=== PATIENT | female | born 1950 | race American Indian/Alaskan Native ===

== ENCOUNTER 2019-08-01 06:00 | Observation (INO) | payer MEDICARE, OTHER ==
--- NOTE | 2019-07-27 10:30 | Anesthesia Consultation ---
Anesthesia Consult and Med Hx Date of service: 07/27/19 - Airway Anesthetic Teeth Evaluation: Caps, Bridges ROM Head & Neck: Adequate Mental/Hyoid Distance: Adequate Mallampati Class: Class II Intubation Access Assessment: Probably Good - Pre-Operative Health Status ASA Pre-Surgery Classification: ASA3 Proposed Anesthetic Plan: General Nerve Block: AC - Pulmonary Hx Pneumonia: Yes (AGE 4 YRS) - Cardiovascular System Hx Hypertension: Yes Hx Coronary Artery Disease: Yes (+Cardiac clearance, ECHO, Stress test) Hx Heart Attack/AMI: Yes (Stents X 3 2018) - Central Nervous System Hx Back Pain: Yes Hx Psychiatric Problems: No - Endocrine Hx Renal Disease: Yes (Creatinine 1.11) Hx Non-Insulin Dependent Diabetes: Yes - Hematic Hx Anemia: No - Other Systems Hx Alcohol Use: No Hx Substance Use: No Hx Cancer: Yes
[~2019-08-01 06:00] MED LIST: BUPIVACAINE/PF (0.25%) 2.5 MG/ML 30 ML VIAL INFILTRATI ONE; CELECOXIB 200 MG CAP PO NR; GABAPENTIN 300 MG CAP PO NR; KETOROLAC 10 MG TAB PO ONE; MIDAZOLAM 2 MG/2 ML INJ IV NR; MORPHINE 10 MG/1 ML INJ IM ONE; SODIUM CHLORIDE 0.9% 50 ML VIAL INFILTRATI ONE; VANCOMYCIN/NS 1 GM/250 ML 1 GM/250 ML BAG IV SCH; fentaNYL 100 MCG/2 ML INJ IV PRN
[2019-08-01] MEDS: LACTATED RINGERS 1,000 ML IV SCH ×2 (07:05→22:47)
[2019-08-01] MEDS ORDERED: HYDROmorphone 1 MG/1 ML INJ IV PRN (07:15)
[2019-08-01] MEDS ORDERED: ONDANSETRON 4 MG/2 ML INJ IV PRN (07:15)
--- NOTE | 2019-08-01 07:18 | Anesthesia Day of Surgery ---
Anesthesia Day of Surgery - Day of Surgery Patient Examined: Yes Patient H&P Reviewed: Yes Patient is NPO: Yes Beta Blockers: Yes Cardiac Clearance: Yes
[2019-08-01] MEDS ORDERED: BUPIVACAINE/PF (0.25%) 2.5 MG/ML 30 ML VIAL INFILTRATI ONE ×2 (07:27→10:52)
[2019-08-01] MEDS ORDERED: MORPHINE 10 MG/1 ML INJ ONE (07:28)
[2019-08-01] MEDS ORDERED: SODIUM CHLORIDE 0.9% 300 ML ONE (07:28)
[2019-08-01] MEDS ORDERED: BACITRACIN 50,000 UNIT VIAL ONE (07:28)
[2019-08-01] MEDS ORDERED: SODIUM CHLORIDE P/F VIAL 10 ML 10 ML ONE (07:28)
[2019-08-01] MEDS ORDERED: OXYCHLOROSENE 2 GM POWDER IR ONE ×2 (07:29→10:16)
[2019-08-01] MEDS ORDERED: POLYMYXIN B SULFATE 500,000 UNIT VIAL IV ONE ×2 (07:29→09:35)
[2019-08-01] MEDS ORDERED: KETOROLAC 30 MG/1 ML INJ ONE (07:30)
[2019-08-01] MEDS ORDERED: TRANEXAMIC ACID 1,000 MG/10 ML ONE (07:30)
[2019-08-01] MEDS ORDERED: BUPIVACAINE-EPINEPHRINE/PF 0.25%-1:200,000 (30 ML) VIAL INFILTRATI ONE (07:48)
[2019-08-01] MEDS ORDERED: GLYCOPYRROLATE 0.4 MG/2 ML INJ ONE ×2 (08:30→08:49)
[2019-08-01] MEDS ORDERED: TRANEXAMIC ACID 1,000 MG/10 ML IV ONE (08:45)
[2019-08-01] MEDS ORDERED: dexAMETHasone 20 MG/5 ML VIAL ONE (08:49)
[2019-08-01] MEDS ORDERED: ROCURONIUM 50 MG/5 ML INJ IV ONE (08:49)
[2019-08-01] MEDS ORDERED: PROPOFOL 200 MG/20 ML VIAL IV ONE (08:49)
[2019-08-01] MEDS ORDERED: LIDOCAINE MPF (2%) 20 MG/1 ML VIAL 5 ML ONE (08:49)
[2019-08-01] MEDS ORDERED: fentaNYL 250 MCG/5 ML INJ ONE (08:49)
[2019-08-01] MEDS ORDERED: PHENYLEPHRINE/NS 1,000 MCG/10 ML SYRINGE (OR USE) IV ONE (08:49)
[2019-08-01] MEDS ORDERED: ONDANSETRON 4 MG/2 ML INJ ONE (08:49)
[2019-08-01] MEDS ORDERED: NEOSTIGMINE 10MG/10 ML INJ MDV ONE (08:49)
[2019-08-01] MEDS ORDERED: BACITRACIN 50,000 UNIT VIAL IR ONE (09:35)
[2019-08-01] MEDS ORDERED: SODIUM CHLORIDE 0.9% 50 ML VIAL INFILTRATI ONE (10:52)
[2019-08-01] MEDS ORDERED: MORPHINE 10 MG/1 ML INJ IM ONE (10:52)
[2019-08-01] MEDS ORDERED: KETOROLAC 10 MG TAB PO ONE (10:52)
[2019-08-01] MEDS ORDERED: HYDROmorphone 1 MG/1 ML INJ ONE (11:00)
[2019-08-01] MEDS ORDERED: MAGNESIUM HYDROXIDE (MOM) ORAL LIQD UDC PO PRN (11:11)
[2019-08-01] MEDS ORDERED: PROMETHAZINE 25 MG RECT SUPP PR PRN (11:11)
--- NOTE | 2019-08-01 12:10 | Operative Report ---
PREOPERATIVE DIAGNOSIS: Severe advanced osteoarthritis, right knee joint. POSTOPERATIVE DIAGNOSES: 1. Advanced osteoarthritis, right knee joint. 2. Genu valgum deformity. COMPLICATIONS: None. BLOOD LOSS: Minimal. IMPLANTS USED: Sierra and Nephew Legion Oxinium femoral component, size 4, narrow right side posterior stabilized tibial tray size 2 base plate. Polyethylene liner 9 mm, highly cross-linked posterior stabilized patella 29 mm, 3 post, 7.5 mm thick. Cement Palacos R+G. BRIEF HISTORY: The patient had a painful arthritic right knee, failed conservative treatment, opted to go for surgical intervention. Risks and benefit discussed, informed consent obtained, brought to the hospital for the above procedure. DETAILS OF THE OPERATIVE REPORT: The patient was taken to the operating room. After smooth and general endotracheal anesthesia, all the bony prominences were carefully padded, placed supine on the operating table. A thigh tourniquet was placed. Right knee, right lower extremity prepped and draped in sterile fashion. The patient was given 900 mg of clindamycin IV half an hour before the procedure. Leg elevated, Esmarch used, and tourniquet inflated to 300 mmHg. Longitudinal incision made over anterior aspect of knee, exposing extensor mechanism. An arthrotomy performed. Patella displaced laterally. Gross finding revealed severe advanced degenerative arthritis. Necessary soft tissue release was performed to correct the fixed angular deformity and the retractors were placed to protect the collateral ligament. Drill was used to open up the femoral canal. Distal intramedullary femoral cutting guide was placed. Distal femur resected 5-degree valgus angle. Epicondylar access apex determined. Femoral sizing guide was placed, appropriate components selected. Anteroposterior condyles were then resected with oscillating saw. Extramedullary tibial cutting guide was placed, proximal tibia resected perpendicular to the long axis of tibia. Lamina spreaders placed between femur and tibia. Arthritic ACL and PCL ligaments were removed medial and lateral meniscectomy performed. Gap balancing was then achieved by doing appropriate release of the capsule on the lateral side. Once this was done, tibia was then prepared by tibial reaming broach system by placing the tibial tray in proper position, proper external rotation. Femur was then prepared for the box using Sierra and Nephew trial femur using reaming and punch technique. Following that, the trialing was performed with 9 poly with great stability, full extension, full flexion, stable throughout range of motion, and patellar tracking central. Patella was prepared by patellar reaming system, prepared for 3 post-patella, prepatellar thickness 21 mm, post-patellar thickness 21.5 mm. Osteophytes around the patella were removed. Synovium excised around the patella. Patella tracked central throughout range of motion. We decided to go with the real components. We removed the trial components, thoroughly washed the knee area with antibiotic-soaked normal saline followed by normal saline. Real tibia was cemented cementing was performed. Tibia was cemented first set in proper position, proper external rotation and packed in place. Excess cement was removed. Femur was then cemented in proper position, proper external rotation and packed in place. Excess cement was removed. Trial liner was then placed. Patella cemented in proper position, compressed in place. Excess cement was removed. Once the cement was hardened, real tibial articulating surface was implanted and knee moved through range of motion and found to be stable throughout range of motion and patella tracked central. Tourniquet released. Hemostasis achieved. No active bleeder as such. Arthrotomy closed with a combination of 0 Vicryl in a #2 Quill suture. Subcutaneous tissue closed with a combination of 0 and 2-0 Vicryl interrupted sutures. Skin was closed with Monocryl and Aquacel dressing done. The patient tolerated the procedure well and shifted to recovery room in stable condition. Sponge and needle count was correct. JOB# [id number] SK/ANISHA
--- NOTE | 2019-08-01 13:15 | XRay Report ---
Right knee, 2 views INDICATION: Knee pain, postop FINDINGS: A right total knee prosthesis is seen appearing to be in good position. No fracture is iden tified. No significant postoperative abnormality. Signer Name: Kaushik Reddy MD Signed: 08/01/2019 1:11 PM Workstation Name: [id number]
--- NOTE | 2019-08-01 15:48 | Post Anesthesia Evaluation ---
- Post Anesthesia Evaluation Patient Participated: Yes Airway Patent: Yes Stable Respiratory Function: Yes Nausea/Vomiting: No Temp > 96.8F: Yes Pain Manageable: Yes Adequeate Hydration: Yes Anesthesia Complications: No
[2019-08-01] MEDS: HYDROcodone/ACETAMINOPHEN 7.5-325MG TAB PO PRN (16:31)
--- NOTE | 2019-08-01 16:59 | Consultation ---
History of Present Illness - Reason for Consult Consult date: 08/01/19 HTN, Diabetes Requesting physician: MIKEL URENA - History of Present Illness 68 YO Female with OA, HTN, Obesity, HLD, CAD S/P Stent Placement, DE. consult placed by Dr. Urena for management of HTN, and DM. Pt seen and evaluated upon arrival to her room. Pt denies fever, chills, CP, Palpitations, NVD, Trauma, productive cough, or recent ill contacts. No reported nursing events. Past History Past Medical History: CAD, cancer, diabetes, hypertension, hyperlipidemia, other (see hpi) Past Surgical History: total knee replacement, Other (Cardiac stent placement) Social history: , lives with family. denies: smoking, alcohol abuse, prescription drug abuse Family history: diabetes, hypertension Medications and Allergies Allergies Allergy/AdvReac Type Severity Reaction Status Date / Time Penicillins Allergy Severe Anaphylaxis Verified 07/26/19 17:41 shellfish derived Allergy Intermediate Shortness Verified 07/26/19 18:22 of Breath Home Medications Medication Instructions Recorded Confirmed Last Taken Type Aspirin [Aspirin BABY CHEW TAB] 81 mg PO DAILY 07/15/14 07/27/19 06/13/19 08:00 History Glimepiride [Amaryl] 2 mg PO BIDDIAB #60 tablet 07/19/14 07/27/19 07/31/19 14:00 Rx Metoprolol [Lopressor TAB] 25 mg PO BID #60 tablet 07/19/14 07/27/19 08/01/19 04:00 Rx Rosuvastatin (Nf) [Crestor] 40 mg PO QHS #30 tablet 07/19/14 07/27/19 07/31/19 14:00 Rx Docusate Calcium 50 mg PO DAILY 07/26/19 07/26/19 07/31/19 14:00 History Losartan/Hydrochlorothiazide 100 mg PO QDAY 07/26/19 07/27/19 08/01/19 04:00 History [Hyzaar 100-12.5 TAB] Meloxicam 15 mg PO PRN 07/26/19 07/26/19 07/31/19 14:00 History metFORMIN 500 mg PO BID 07/26/19 07/26/19 07/31/19 14:00 History Active Meds: Active Medications Acetaminophen/Hydrocodone Bitart ([place] 7.5/325) 1 each PO Q4H PRN PRN Reason: Pain, Moderate (4-6) Last Admin: 08/01/19 16:31 Dose: 1 each Documented by: Apixaban (Eliquis) 2.5 mg PO Q12HR GRIS; Protocol Stop: 08/13/19 21:59 Atorvastatin Calcium (Lipitor) 80 mg PO QHS GRIS Bisacodyl (Dulcolax) 10 mg ME QDAY PRN PRN Reason: Constip unreliev by MOM/or NPO Celecoxib (Celebrex) 200 mg PO PREOP NR Stop: 08/01/19 23:00 Last Admin: 08/01/19 06:55 Dose: 200 mg Documented by: Celecoxib (Celebrex) 200 mg PO BID GRIS Docusate Sodium (Colace) 50 mg PO QDAY GRIS Fentanyl (Sublimaze) 100 mcg IV ONCE PRN PRN Reason: sedation for nerve block Last Admin: 08/01/19 07:55 Dose: 100 mcg Documented by: Gabapentin (Gabapentin) 300 mg PO PREOP NR Stop: 08/01/19 23:00 Last Admin: 08/01/19 06:55 Dose: 300 mg Documented by: Gabapentin (Gabapentin) 300 mg PO BID GRIS Glimepiride (Amaryl) 2 mg PO BIDDIAB [facility] Last Admin: 08/01/19 16:31 Dose: 2 mg Documented by: Hydrochlorothiazide (Hctz) 12.5 mg PO QDAY GRIS Hydromorphone HCl (Dilaudid) 0.5 mg IV Q10MIN PRN PRN Reason: Pain , Severe (7-10) Stop: 08/01/19 20:00 Vancomycin HCl (Vancomycin/Ns 1 Gm/250 Ml) 1 gm in 250 mls @ 167.007 mls/hr IV PREOP GRIS; Protocol Stop: 08/01/19 23:00 Last Admin: 08/01/19 08:08 Dose: 167.007 mls/hr Documented by: Lactated Ringer's (Lactated Ringers) 1,000 mls @ 100 mls/hr IV DIRECT GRIS Last Admin: 08/01/19 07:05 Dose: 100 mls/hr Documented by: Clindamycin HCl (Cleocin 900 Mg/50 Ml) 900 mg in 50 mls @ 100 mls/hr IV Q8H GRIS; Protocol Stop: 08/02/19 08:29 Losartan Potassium (Cozaar) 100 mg PO QDAY [facility] Magnesium Hydroxide (Milk Of Magnesia) 30 ml PO Q4H PRN PRN Reason: Constipation Metformin HCl (Glucophage) 500 mg PO BIDDIAB [facility] Last Admin: 08/01/19 16:31 Dose: 500 mg Documented by: Metoprolol Tartrate (Metoprolol) 25 mg PO BID [facility] Midazolam HCl (Versed) 2 mg IV PREOP NR Stop: 08/01/19 23:00 Last Admin: 08/01/19 07:55 Dose: 2 mg Documented by: Promethazine HCl (Phenergan) 25 mg ME Q6H PRN PRN Reason: Nausea And Vomiting Sodium Chloride (Sodium Chloride Flush Syringe 10 Ml) 10 ml IV PRN NR Stop: 08/11/19 11:59 Review of Systems Constitutional: no weight loss, no weight gain, no fever, no chills Ears, nose, mouth and throat: no ear pain, no ear discharge, no tinnitis, no decreased hearing, no nose pain Breasts: no change in shape, no swelling, no mass Cardiovascular: no chest pain, no orthopnea, no palpitations, no rapid/irregular heart beat Respiratory: no cough, no cough with sputum, no hemoptysis, no dyspnea on exertion Gastrointestinal: no abdominal pain, no nausea, no vomiting, no diarrhea, no change in bowel habits, no hematemesis Genitourinary Female: no pelvic pain, no flank pain, no menorrhagia, no dysuria, no urinary frequency, no urgency Rectal: no pain, no incontinence, no bleeding Musculoskeletal: no neck stiffness, no neck pain, no shooting arm pain, no low back pain, no shooting leg pain, no leg numbness/tingling Integumentary: no rash, no pruritis, no redness, no sores, no wounds, no jaundice Neurological: no head injury, no transient paralysis, no paralysis, no weakness, no parathesias, no numbness Psychiatric: no anxiety, no memory loss, no change in sleep habits, no sleep disturbances, no insomnia, no change in appetite, no change in libido, no suicidal ideation, no disorientation Endocrine: no cold intolerance, no heat intolerance, no excessive thirst, no polydipsia, no polyuria, no nocturia, no excessive sweating, no flushing Hematologic/Lymphatic: no easy bruising, no easy bleeding, no lymphadenopathy, no lymphedema Allergic/Immunologic: no urticaria, no allergic rhinitis, no persistent infections, no anaphylaxis, no angioedema Exam - Constitutional Vitals: Temp Pulse Resp BP Pulse Ox 97.4 F L 69 19 147/76 3 L 08/01/19 13:24 08/01/19 15:56 08/01/19 15:56 08/01/19 15:56 08/01/19 15:56 General appearance: Present: no acute distress, well-nourished - EENT Eyes: Present: PERRL ENT: hearing intact, clear oral mucosa - Neck Neck: Present: supple, normal ROM - Respiratory Respiratory effort: normal Respiratory: bilateral: CTA - Cardiovascular Heart Sounds: Present: S1 & S2. Absent: rub, click - Extremities Extremities: pulses symmetrical, No edema Peripheral Pulses: within normal limits - Abdominal General gastrointestinal: Present: soft, non-tender, non-distended, normal bowel sounds Female genitourinary: Present: normal - Integumentary Integumentary: Present: clear, warm, dry - Musculoskeletal Musculoskeletal: gait normal, strength equal bilaterally - Psychiatric Psychiatric: appropriate mood/affect, intact judgment & insight - Neurologic Neurologic: CNII-XII intact, moves all extremities Results - Labs Labs: Abnormal lab results 08/01/19 08/01/19 Range/Units 07:28 12:22 POC Glucose 184 H 197 H (70-105) Assessment and Plan - Patient Problems (1) Diabetes Current Visit: No Status: Chronic Plan to address problem: ADA diet, insulin, accu check, hypoglycemia protocol (2) Hyperlipidemia Current Visit: No Status: Chronic Qualifiers: Hyperlipidemia type: mixed hyperlipidemia Qualified Code(s): E78.2 - Mixed hyperlipidemia Plan to address problem: statin therapy, balanced diet, (3) Hypertension Current Visit: No Status: Chronic Qualifiers: Hypertension type: essential hypertension Qualified Code(s): I10 - Essential (primary) hypertension Plan to address problem: monitor bp q shift, continue medical management
[2019-08-01] MEDS ORDERED: metFORMIN 500 MG TAB PO SCH (17:00)
[2019-08-01] MEDS ORDERED: GLIMEPIRIDE 2 MG TAB PO SCH (17:00)
[2019-08-01] MEDS ORDERED: DEXTROSE 50% IN WATER (25GM) 50 ML SYRINGE IV PRN (17:00)
[2019-08-01] MEDS: INSULIN LISPRO 100 UNIT/ML SUB-Q SCH (18:36)
[2019-08-01] MEDS ORDERED: NON-FORMULARY EACH (Metformin 500 MG) PO SCH (22:00)
[2019-08-01] MEDS ORDERED: ROSUVASTATIN 40 MG PO SCH (22:00)
[2019-08-01] MEDS: CELECOXIB 200 MG CAP PO SCH (22:40)
[2019-08-01] MEDS: GABAPENTIN 300 MG CAP PO SCH (22:40)
[2019-08-01] MEDS: APIXABAN 2.5 MG TAB PO SCH (22:41)
[2019-08-01] MEDS: METOPROLOL TARTRATE 25 MG TAB PO SCH (22:41)
[2019-08-02] MEDS: INSULIN LISPRO 100 UNIT/ML SUB-Q SCH ×4 (00:19→17:31)
[2019-08-02] MEDS: LOSARTAN 50 MG TAB PO SCH ×2 (08:24→10:00)
[2019-08-02] MEDS: hydroCHLOROthiazide 12.5 MG CAP PO SCH ×2 (08:25→10:00)
[2019-08-02] MEDS: GABAPENTIN 300 MG CAP PO SCH ×3 (08:25→21:27)
[2019-08-02] MEDS: METOPROLOL TARTRATE 25 MG TAB PO SCH ×2 (08:26→10:00)
[2019-08-02] MEDS: CELECOXIB 200 MG CAP PO SCH ×3 (08:26→21:26)
[2019-08-02] MEDS: APIXABAN 2.5 MG TAB PO SCH ×3 (08:28→21:27)
[2019-08-02] MEDS: LACTATED RINGERS 1,000 ML IV SCH (08:42)
[2019-08-02] MEDS ORDERED: HYDROCHLOROTHIAZIDE PO SCH (10:00)
[2019-08-02] MEDS ORDERED: DOCUSATE CALCIUM PO SCH (10:00)
[2019-08-02] MEDS ORDERED: LOSARTAN PO SCH (10:00)
--- NOTE | 2019-08-02 10:13 | Progress Note ---
Assessment and Plan Assessment and plan: 68F sp R THR Diabetes ADA diet, insulin, accu check, hypoglycemia protocol Hyperlipidemia statin therapy, balanced diet, Hypertension monitor bp q shift, continue medical management History Interval history: Review of systems Constitutional: No fevers, no malaise, no joint pains CVS: No chest pain, no orthopnea, no pedal edema GI: No abdominal pain, no diarrhea, no vomiting, no constipation Respiratory: , no wheezing, no coughing Hospitalist Physical - Physical exam Narrative exam: General.: Appears well, no distress, nontoxic HEENT: Moist mucous membranes, extraocular muscles intact, no lymphadenopathy Neck: supple Cardiac: S1-S2 heard Lungs: clear to auscultation bilaterally Abdomen: soft , nontender, nondistended, bowel sounds positive Extremities: no edema clubbing or cyanosis Skin: no rash or lesions Neurologic: no gross focal deficits Psych: calm, and cooperative - Constitutional Vitals: Temp Pulse Resp BP Pulse Ox 98.3 F 69 20 123/66 20 L 08/02/19 07:00 08/02/19 08:26 08/02/19 07:00 08/02/19 08:26 08/02/19 07:00 General appearance: Present: no acute distress, well-nourished Results - Labs CBC & Chem 7: 08/02/19 08:45 Labs: Laboratory Last Values Creatinine 0.9 mg/dL (0.7-1.2) 08/02/19 08:45 Estimated GFR > 60 ml/min 08/02/19 08:45 POC Glucose 145 (70-105) H 08/02/19 07:00 Blood Type A POSITIVE 08/01/19 07:05 Antibody Screen Negative 08/01/19 07:05 Active Medications - Current Medications Current Medications: Generic Name Dose Route Start Last Admin Trade Name Freq PRN Reason Stop Dose Admin Acetaminophen/Hydrocodone Bitart 1 each 08/01/19 11:18 08/01/19 16:31 [place] 7.5/325 PO 1 each Q4H PRN Administration Pain, Moderate (4-6) Apixaban 2.5 mg 08/01/19 22:00 08/02/19 08:28 Eliquis PO 08/13/19 21:59 2.5 mg Q12HR GRIS Administration Protocol Atorvastatin Calcium 80 mg 08/01/19 22:00 08/01/19 22:40 Lipitor PO 80 mg QHS GRIS Administration Bisacodyl 10 mg 08/01/19 11:11 Dulcolax [place] QDAY PRN Constip unreliev by MOM/or NPO Celecoxib 200 mg 08/01/19 22:00 08/02/19 08:26 Celebrex PO 200 mg BID GRIS Administration Dextrose 50 ml 08/01/19 17:00 D50w (25gm) Syringe IV Q30MIN PRN Hypoglycemia Protocol Docusate Sodium 50 mg 08/02/19 10:00 Colace PO QDAY GRIS Fentanyl 100 mcg 08/01/19 06:00 08/01/19 07:55 Sublimaze IV 100 mcg ONCE PRN Administration sedation for nerve block Gabapentin 300 mg 08/01/19 22:00 08/02/19 08:25 Gabapentin PO 300 mg BID GRIS Administration Hydrochlorothiazide 12.5 mg 08/02/19 10:00 08/02/19 08:25 Hctz PO 12.5 mg QDAY GRIS Administration Lactated Ringer's 1,000 mls @ 100 mls/hr 07/31/19 11:00 08/02/19 08:42 Lactated Ringers IV 100 mls/hr DIRECT GRIS Administration Insulin Human Lispro 0 unit 08/01/19 18:00 08/02/19 08:30 Humalog SUB-Q Not Given Q6HR [facility] Protocol Losartan Potassium 100 mg 08/02/19 10:00 08/02/19 08:24 Cozaar PO 100 mg QDAY GRIS Administration Magnesium Hydroxide 30 ml 08/01/19 11:11 Milk Of Magnesia PO Q4H PRN Constipation Metoprolol Tartrate 25 mg 08/01/19 22:00 08/02/19 08:26 Metoprolol PO 25 mg BID GRIS Administration Promethazine HCl 25 mg 08/01/19 11:11 Phenergan [place] Q6H PRN Nausea And Vomiting Sodium Chloride 10 ml 08/01/19 12:00 Sodium Chloride Flush Syringe 10 Ml IV 08/11/19 11:59 PRN NR
[2019-08-02] MEDS: DOCUSATE SODIUM 100 MG/10 ML ORAL LIQD PO SCH (10:45)
[2019-08-02] MEDS: HYDROcodone/ACETAMINOPHEN 7.5-325MG TAB PO PRN ×2 (16:30→23:17)
[2019-08-03] MEDS: INSULIN LISPRO 100 UNIT/ML SUB-Q SCH ×2 (01:41→06:46)
[2019-08-03] MEDS: METOPROLOL TARTRATE 25 MG TAB PO SCH ×2 (01:43→10:43)
[2019-08-03] MEDS: HYDROcodone/ACETAMINOPHEN 7.5-325MG TAB PO PRN ×2 (06:52→17:43)
[2019-08-03] MEDS ORDERED: INSULIN LISPRO 100 UNIT/ML SUB-Q SCH (07:30)
[2019-08-03] MEDS: DOCUSATE SODIUM 100 MG/10 ML ORAL LIQD PO SCH (10:41)
[2019-08-03] MEDS: LOSARTAN 50 MG TAB PO SCH (10:41)
[2019-08-03] MEDS: CELECOXIB 200 MG CAP PO SCH (10:42)
[2019-08-03] MEDS: APIXABAN 2.5 MG TAB PO SCH (10:42)
[2019-08-03] MEDS: hydroCHLOROthiazide 12.5 MG CAP PO SCH (10:42)
[2019-08-03] MEDS: GABAPENTIN 300 MG CAP PO SCH (10:43)
--- NOTE | 2019-08-03 13:08 | Progress Note ---
History Interval history: Review of systems Constitutional: No fevers, no malaise, no joint pains CVS: No chest pain, no orthopnea, no pedal edema GI: No abdominal pain, no diarrhea, no vomiting, no constipation Respiratory: , no wheezing, no coughing Hospitalist Physical - Physical exam Narrative exam: General.: Appears well, no distress, nontoxic HEENT: Moist mucous membranes, extraocular muscles intact, no lymphadenopathy Neck: supple Cardiac: S1-S2 heard Lungs: clear to auscultation bilaterally Abdomen: soft , nontender, nondistended, bowel sounds positive Extremities: no edema clubbing or cyanosis Skin: no rash or lesions Neurologic: no gross focal deficits Psych: calm, and cooperative - Constitutional Vitals: Temp Pulse Resp BP Pulse Ox 98.0 F 84 20 153/67 96 08/03/19 11:18 08/03/19 11:18 08/03/19 11:18 08/03/19 11:18 08/03/19 11:18 General appearance: Present: no acute distress, well-nourished Results - Labs CBC & Chem 7: 08/02/19 08:45 Labs: Laboratory Last Values Creatinine 0.9 mg/dL (0.7-1.2) 08/02/19 08:45 Estimated GFR > 60 ml/min 08/02/19 08:45 POC Glucose 256 (70-105) H 08/03/19 11:36 Blood Type A POSITIVE 08/01/19 07:05 Antibody Screen Negative 08/01/19 07:05 Active Medications - Current Medications Current Medications: Generic Name Dose Route Start Last Admin Trade Name Freq PRN Reason Stop Dose Admin Acetaminophen/Hydrocodone Bitart 1 each 08/01/19 11:18 08/03/19 06:52 [place] 7.5/325 PO 1 each Q4H PRN Administration Pain, Moderate (4-6) Apixaban 2.5 mg 08/01/19 22:00 08/03/19 10:42 Eliquis PO 08/13/19 21:59 2.5 mg Q12HR GRIS Administration Protocol Atorvastatin Calcium 80 mg 08/01/19 22:00 08/02/19 21:27 Lipitor PO 80 mg QHS GRIS Administration Bisacodyl 10 mg 08/01/19 11:11 Dulcolax [place] QDAY PRN Constip unreliev by MOM/or NPO Celecoxib 200 mg 08/01/19 22:00 08/03/19 10:42 Celebrex PO 200 mg BID GRIS Administration Dextrose 50 ml 08/01/19 17:00 D50w (25gm) Syringe IV Q30MIN PRN Hypoglycemia Protocol Docusate Sodium 50 mg 08/02/19 10:00 08/03/19 10:41 Colace PO 50 mg QDAY GRIS Administration Fentanyl 100 mcg 08/01/19 06:00 08/01/19 07:55 Sublimaze IV 100 mcg ONCE PRN Administration sedation for nerve block Gabapentin 300 mg 08/01/19 22:00 08/03/19 10:43 Gabapentin PO 300 mg BID GRIS Administration Hydrochlorothiazide 12.5 mg 08/02/19 10:00 08/03/19 10:42 Hctz PO 12.5 mg QDAY GRIS Administration Lactated Ringer's 1,000 mls @ 100 mls/hr 07/31/19 11:00 08/02/19 08:42 Lactated Ringers IV 100 mls/hr DIRECT GRIS Administration Insulin Human Lispro 0 unit 08/03/19 07:30 08/03/19 07:14 Humalog SUB-Q Not Given ACHS GRIS Protocol Losartan Potassium 100 mg 08/02/19 10:00 08/03/19 10:41 Cozaar PO 100 mg QDAY GRIS Administration Magnesium Hydroxide 30 ml 08/01/19 11:11 Milk Of Magnesia PO Q4H PRN Constipation Metoprolol Tartrate 25 mg 08/01/19 22:00 08/03/19 10:43 Metoprolol PO 25 mg BID GRIS Administration Promethazine HCl 25 mg 08/01/19 11:11 Phenergan [place] Q6H PRN Nausea And Vomiting Sodium Chloride 10 ml 08/01/19 12:00 Sodium Chloride Flush Syringe 10 Ml IV 08/11/19 11:59 PRN NR
[2019-08-03 17:27] VITALS: BP 119/55
--- NOTE | 2019-09-26 22:43 | Discharge Summary ---
HOSPITAL STAY: The patient was admitted to the hospital on 08/01/2019 for a total knee arthroplasty. The patient underwent the procedure very well. She was placed on appropriate medication postoperatively and chemical and mechanical prophylaxis for DVT prophylaxis. The patient's pain was under control with medication. For postop management, the patient is being seen by hospitalist. On 08/01/2019, consult note with Dr. Guzmán followed by Dr. Rodriguez. The patient's symptoms were managed well. Pain was under control with medication. Necessary postop orders were given for her to do appropriate therapy and occupational therapy. The patient on 08/03/2019 was seen by the hospitalist and as per the note, the patient appears well with no distress and was discharged by the hospitalist. Home health care was involved and necessary discharge instructions were given and followup appointment recommended as well. The patient's hospital stay was uneventful as such and tolerated the procedure very well. Instructions to follow total knee replacement discharge instruction sheet were informed and instructed to the nurse to give it to the patient and home health arrangements was recommended as well for total knee replacement. JOB# [id number] KISHAN/ANISHA
== END 2019-08-03 18:00 | disposition home health service (06) ==
LOC: OR 06:00 → EDSTATUS 07:30 → 3B-SURG 11:11
PROVIDERS: ADMIT Internal Medicine; ATTEND Orthopaedic Surgery
DX: M17.11 Unilateral primary osteoarthritis, right knee (principal); M21.061 Valgus deformity, not elsewhere classified, right knee; I10 Essential (primary) hypertension; E11.9 Type 2 diabetes mellitus without complications; E78.5 Hyperlipidemia, unspecified; Z79.4 Long term (current) use of insulin
CPT/HCPCS: 27447; 36415; 64450; 73560; 82565; 82962; 86850; 86900; 86901; 87116; 88305; 94760; 96365; 96366; 96367; 96372; 96375; 97110; 97116; 97161; 97165; A9270; C1713; C1776; G0378; J1100; J1170; J2250; J2270; J2370; J2405; J2704; J2710; J3010; J3370; J7120; 88304; 88311; J1815; J1885